=== PATIENT | female | born 1945 | race Caucasian/White ===

== ENCOUNTER 2021-07-22 19:44 | Emergency (ER) | payer MEDICARE, OTHER, MEDICAID ==
[~2021-07-22] VITALS: Ht 152.4 cm; Wt 89.4 kg
--- NOTE | 2021-07-22 19:48 | PHYS DOC ---
General Adult HPI: HPI: "I was just sitting around.. but started to sit up and turn my head.. and the room started spinning... I tried again to sit up and turn my head.. I got dizzy again.. the room was spinning.. some nausea.. my BP was up even though I have taken my Blood pressure meds... I do have diabetes.. but control it with my diet...". " I did recently loss my of 55 yrs... he had a PR.. he had a bad heart .. it was not unexpected... but is never expected..." Patient is a 75 year old female who presents with above hx and complaints of dizziness/vertigo-like symptoms this afternoon. Patient states room seem to be spinning. Particularly when she tried to sit up rapidly or turn her to head to the left. Patient denies any history of trauma. Has been compliant with her meds. However her blood pressure was elevated. Patient denies any recent travel. No specific ill contacts. Has had history of diabetes and hypertension. Patient normally follows with Dr. Riley. Does have a history of diabetes and hypertension. As noted positioning patient's head turning to the left and sitting up or laying down resulted in the dizziness complaints. Review of Systems: Review of Systems: Constitutional: Denies fever or chills Eyes: Denies change in visual acuity HENT: Denies nasal congestion or sore throat Respiratory: Denies cough or shortness of breath Cardiovascular: Denies chest pain or edema GI: Denies abdominal pain, nausea, vomiting, bloody stools or diarrhea : Denies dysuria Musculoskeletal: Denies back pain or joint pain Integument: Denies rash Neurologic: Dizziness, vertigo Endocrine: Denies polyuria or polydipsia Lymphatic: Denies swollen glands Psychiatric: Denies depression or anxiety Family History: Family History: Noncontributory to presentation Current Medications: Current Meds: See nursing for home meds Allergies: Allergies: Allergic to penicillins and sulfa Physical Exam: PE: Constitutional: mild distress, non-toxic appearance. [] HENT: Normocephalic, atraumatic, bilateral external ears normal, oropharynx moist, no oral exudates, nose normal. [] Eyes: PERRLA, EOMI, conjunctiva normal, no discharge. [] Neck: Normal range of motion, no tenderness, supple, no stridor. [] No bruits appreciated Cardiovascular:Heart rate regular rhythm, no murmur [. The] bedside monitor shows a sinus rhythm. In the 80s Lungs & Thorax: Bilateral breath sounds clear to auscultation [] Abdomen: Bowel sounds normal, soft, no tenderness, no masses, no pulsatile masses. [] Obese. Skin: Warm, dry, no erythema, no rash. [] Back: No tenderness, no CVA tenderness. [] Extremities: No tenderness, no cyanosis, no clubbing, ROM intact, no edema. No cording appreciated Neurologic: Alert and oriented X 3, normal motor function, normal sensory function, no focal deficits noted. [] DTRs +2 patella and brachial. 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 [id number]. No drift. When patient sits up abruptly or turns head to the left does seem to repeat for symptoms of dizziness. Psychologic: Affect anxious, judgement normal, mood normal. [] EKG: EKG: My interpretation of EKG shows a sinus rhythm at 69 bpm. No acute morphology. Some findings of LVH. Nonspecific Q-wave changes most likely due to the LVH. No findings of acute STEMI with contralateral changes. Follow-up primary care. Time of EKG is 2025 hrs. Radiology/Procedures: Radiology/Procedures: [[address] [address] IMAGING REPORT Signed PATIENT: RENEE CALERO I ACCOUNT: [id number] : 1945 LOCATION: ER AGE: 75 SEX: F EXAM STATUS: REG ER ORD. PHYSICIAN: FRANK VASQUEZ MD REASON: dyspnea PROCEDURE: PORTABLE CHEST 1V XR CHEST 1V Clinical History: Reason: dyspnea / Spl. Instructions: / History: Technique: AP view of the chest was obtained at 07/22/2021 8:18 PM. Comparison: None. Findings: The cardiomediastinal silhouette is normal. The pulmonary vasculature is normal. The lungs and pleural margins are clear. Impression: No evidence of an acute cardiopulmonary process. Electronically signed by: Mario Albrecht III, MD (07/22/2021 9:43 PM) [facility] DICTATED AND SIGNED BY: MARIO ALBRECHT III, MD DATE: 07/22/212141 CC: HOLLI RILEY MD; FRANK VASQUEZ MD ~ ][address] [address] IMAGING REPORT Signed PATIENT: RENEE CALERO I ACCOUNT: [id number] : 1945 LOCATION: ER AGE: 75 SEX: F EXAM STATUS: REG ER ORD. PHYSICIAN: FRANK VASQUEZ MD REASON: Hypertension, dizziness, acute, hx of stroke 1 yr ago PROCEDURE: CT HEAD WO CONTRAST CT Head W/O Contrast: History: Reason: Hypertension, dizziness, acute, hx of stroke 1 yr ago / Spl. I nstructions: / History: Comparison: none Axial images were obtained without contrast. The sanders and white matter appears normal and symmetrical for the patients age. There is no mass effect, extraaxial fluid collections or hydrocephalus. There is no gross bleed. There is no focal loss of sanders-white matter distinction to suggest acute ischemia, i.e. stroke. Impression: No acute findings. PQRS Compliance Statement: One or more of the following individualized dose reduction techniques were utilized for this examination: 1. Automated exposure control 2. Adjustment of the mA and/or kV according to patient size 3. Use of iterative reconstruction technique Electronically signed by: Mario Albrecht III, MD (07/22/2021 9:17 PM) [facility] DICTATED AND SIGNED BY: MARIO ALBRECHT III, MD DATE: 07/22/212115 CC: HOLLI RILEY MD; FRANK VASQUEZ MD ~ Heart Score: C/O Chest Pain: N/A HEART Score for Chest Pain: HEART Score for Chest Pain Response (Comments) Value History Slighlty/Non-Suspicious 0 ECG Nonspecific Repolarizatio 1 Age > 65 2 Risk Factors 1 or 2 Risk Factors 1 Troponin < Normal Limit 0 Total 4 Risk Factors: Risk Factors: DM, Current or recent (<one month) smoker, HTN, HLP, family history of CAD, obesity. Risk Scores: Score 0 - 3: 2.5% MACE over next 6 weeks - Discharge Home Score 4 - 6: 20.3% MACE over next 6 weeks - Admit for Clinical Observation Score 7 - 10: 72.7% MACE over next 6 weeks - Early Invasive Strategies Course & Med Decision Making: Course & Med Decision Making Pertinent Labs and Imaging studies reviewed. (See chart for details) Patient requesting discharge reports that her dizziness is resolved. Patient take Cipro 500 twice a day for urinary tract infection. Follow-up primary care. Follow-up culture. Push fluids. Patient declined further work-up at this time. Patient to continue meclizine 25 mg up to 4 times a day if it helps with the dizziness. Follow-up primary care. Return if any concerns. Wear clonidine patch until follow-up. Impression: 1. Dizzy/ Vertigo 2. UTI 3. DM 161 4. Accelerated HTN 5 C-reactive protein 7.6 [] Dragon Disclaimer: Dragon Disclaimer: This electronic medical record was generated, in whole or in part, using a voice recognition dictation system. Departure Departure: Scripts Fluconazole (DIFLUCAN) 100 Mg Tablet 100 MG PO DAILY for post antibiotics for 3 Days, #3 TAB Prov: FRANK VASQUEZ MD 07/22/21 Meclizine Hcl (MECLIZINE HCL) 25 Mg Tablet 25 MG PO QIDPRN PRN for dizzy, #30 TAB Prov: FRANK VASQUEZ MD 07/22/21 Ciprofloxacin (CIPRO) 500 Mg/5 Ml Bisi.mc.rec 500 MG PO BID for uti for 7 Days, MISC Prov: FRANK VASQUEZ MD 07/22/21 Dragtracy Disclaimer This chart was dictated in whole or in part using Voice Recognition software in a busy, high-work load, and often noisy Emergency Department environment. It may contain unintended and wholly unrecognized errors or omissions. Dragon Disclaimer This chart was dictated in whole or in part using Voice Recognition software in a busy, high-work load, and often noisy Emergency Department environment. It may contain unintended and wholly unrecognized errors or omissions. Dragon Disclaimer This chart was dictated in whole or in part using Voice Recognition software in a busy, high-work load, and often noisy Emergency Department environment. It may contain unintended and wholly unrecognized errors or omissions. FRANK VASQUEZ MD July 22, 2021 19:48
[2021-07-22] MEDS ORDERED: MECLIZINE 12.5 MG TABLET. PO ONE (20:00)
[2021-07-22] MEDS ORDERED: IV RINGERS SOLUTION,LACTATED 1,000 ML IV SCH (20:00)
[2021-07-22] MEDS ORDERED: cloNIDine HCL 0.1 MG TABLET PO ONE (20:00)
[2021-07-22] MEDS ORDERED: cloNIDine TTS-2 1 PATCH PATCH TD ONE (20:00)
[2021-07-22 20:50] LABS: BASO % 0 % (0-3); EOS # 0.2 x10^3/uL (0.0-0.7); EOS % 2 % (0-3); HEMATOCRIT 43.3 % (36.0-47.0); HEMOGLOBIN 14.5 g/dL (12.0-15.5); LYMPH % 19 % (24-48); MEAN CORPUSCULAR HEMOGLOBIN 30 pg (25-35); MEAN CORPUSCULAR HGB CONC 33 g/dL (31-37); MEAN CORPUSCULAR VOLUME 89 fL (79-100); MONO % 9 % (0-9); NEUT # 7.5 x10^3uL (1.8-7.7); NEUT % 70 % (31-73); PLATELET COUNT 374 x10^3/uL (140-400); RED BLOOD COUNT 4.87 x10^6/uL (3.50-5.40); RED CELL DISTRIBUTION WIDTH 14.2 % (11.5-14.5); WHITE BLOOD COUNT 10.8 x10^3/uL (4.0-11.0)
[2021-07-22 21:03] LABS: INFLUENZA A PATIENT NEGATIVE (NEGATIVE); INFLUENZA B PATIENT NEGATIVE (NEGATIVE)
[2021-07-22 21:07] LABS: CALCIUM 9.5 mg/dL (8.5-10.1); GFR 54.3; POTASSIUM 3.9 mmol/L (3.5-5.1)
[2021-07-22 21:15] LABS: ALBUMIN 3.4 g/dL (3.4-5.0); C REACTIVE PROTEIN 7.6 mg/L (0-3.3); DIRECT BILIRUBIN 0.1 mg/dL (0.0-0.2); MAGNESIUM 1.9 mg/dL (1.8-2.4); TOTAL BILIRUBIN 0.3 mg/dL (0.2-1.0); TOTAL PROTEIN 6.9 g/dL (6.4-8.2)
--- NOTE | 2021-07-22 21:20 | RAD ---
CT Head W/O Contrast: History: Reason: Hypertension, dizziness, acute, hx of stroke 1 yr ago / Spl. Instructions: / Histor y: Comparison: none Axial images were obtained without contrast. The sanders and white matter appears normal and symmetrical for the patients age. There is no mass effe ct, extraaxial fluid collections or hydrocephalus. There is no gross bleed. There is no focal loss of sanders-white matter distinction to suggest acute ischemia, i.e. stroke. Impression: No acute findings. RS Compliance Statement: One or more of the following individualized dose reduction techniques were utilized for this examinat ion: 1. Automated exposure control 2. Adjustment of the mA and/or kV according to patient size 3. Use of iterative reconstruction technique Electronically signed by: Martin Domínguez III, MD (07/22/2021 9:17 PM) [facility]
[2021-07-22 21:21] LABS: BACTERIA,URINE FEW /HPF (0-FEW); CLARITY,URINE CLEAR; COLOR,URINE YELLOW; GLUCOSE,URINE 250 mg/dL (NEG); NITRITE,URINE POS (NEG); RBC,URINE OCC /HPF (0-2); SQUAMOUS EPITHELIAL CELL,UR OCC /LPF; UROBILINOGEN,URINE 0.2 mg/dL (0.2 mg/dL)
[2021-07-22 21:28] LABS: BARBITURATES NEG (NEG); BENZODIAZEPINES NEG (NEG); CANNABINOIDS NEG (NEG); COCAINE NEG (NEG); METHADONE NEG (NEG); OPIATES NEG (NEG); PHENCYCLIDINE NEG (NEG)
[2021-07-22 21:29] LABS: AMPHETAMINE/METHAMPHETAMINE NEG (NEG)
--- NOTE | 2021-07-22 21:46 | RAD ---
XR CHEST 1V Clinical History: Reason: dyspnea / Spl. Instructions: / History: Technique: AP view of the chest was obtained at 07/22/2021 8:18 PM. Comparison: None. Findings: The cardiomediastinal silhouette is normal. The pulmonary vasculature is normal. The lungs and pleura l margins are clear. Impression: No evidence of an acute cardiopulmonary process. Electronically signed by: Martin Domínguez III, MD (07/22/2021 9:43 PM) [facility]
[2021-07-22] MEDS ORDERED: CIPROFLOXACIN HCL 500 MG TABLET PO ONE (22:00)
[2021-07-22] MEDS ORDERED: MECL-75 PO (22:11)
[2021-07-22] MEDS ORDERED: CIPR500S2 PO (22:11)
[2021-07-22] MEDS ORDERED: FLUC100T7 PO (22:13)
[2021-07-22 22:18] VITALS: BP 139/67
== END 2021-07-22 22:29 | disposition home or self-care (01) ==
LOC: ER 19:44
DX: N39.0 Urinary tract infection, site not specified (principal); E11.9 Type 2 diabetes mellitus without complications; I10 Essential (primary) hypertension; R42 Dizziness and giddiness; Z20.822 Contact with and (suspected) exposure to COVID-19; Z88.0 Allergy status to penicillin; Z88.2 Allergy status to sulfonamides
CPT/HCPCS: 36415; 70450; 71045; 80048; 80076; 80307; 81001; 82550; 83690; 83735; 83880; 84443; 84484; 85025; 85379; 85610; 85730; 86140; 87077; 87086; 87186; 87428; 93005; 96360; 96361; 99285; J7120